=== PATIENT | male | born 2000 | race Two or more races ===

== ENCOUNTER 2020-03-10 12:12 | Emergency (ER) | payer MEDICAID ==
[~2020-03-10] VITALS: Ht 175.3 cm; Wt 97.5 kg
[~2020-03-10 12:12] MED LIST: MUCINEX1200 MG PO; PROMETHAZINE-C118 M1 ORAL; TYLENOL EXTRA500 MG ORAL; ZYRTEC-D TABLE1 EACH ORAL
--- NOTE | 2020-03-10 12:37 | NUR ---
ED Nurse Note: Pt walked into ED for c/o nosebleed for 4 days, 15 minutes each day. Pt also c/o ARCHER for 4 days 6/10 pain. Pt currently has no ARCHER or epistaxis but wants to find out is it's something else. Pt is alert and orientedx4, ambulatory.
[2020-03-10 12:39] VITALS: BP 136/80
[2020-03-10 14:15] VITALS: BP 145/78
--- NOTE | 2020-03-10 14:15 | NUR ---
ER DISCHARGE NOTE: Patient is cleared to be discharged per ERMD, pt is aox4, on room air, with stable vital signs. pt was given dc and prescription instructions, pt was able to verbalize understanding, pt id band removed. pt is able to ambulate with steady gait. pt took all belongings.
== END 2020-03-11 00:30 | disposition home or self-care (01) ==
LOC: EMR 23:35
DX: R04.0 Epistaxis (principal); G43.909 Migraine, unspecified, not intractable, without status migrainosus
CPT/HCPCS: 99281